=== PATIENT | female | born 1945 | race African-American/Black ===

== ENCOUNTER 2016-10-23 14:38 | Emergency (ER) | payer MEDICARE, MEDICAID ==
[~2016-10-23] VITALS: Ht 157.5 cm; Wt 86.0 kg
[~2016-10-23 14:38] MED LIST: ACET-2178 PO; ALBUTEROL INH; ASPI-1159 PO; ATOR40TA70 PO; BACL-141 PO; CEPH500C2 PO; COR25 PO; GLIP10TA10 PO; ISOS30TA6 PO; OMEP20CA10 PO; OXYB5TAB11 PO; PATAODR EACHEYE; PREMV VG; SODI650T PO; TRAM50TA73 PO
[2016-10-23] MEDS ORDERED: SODIUM CHLORIDE 0.9% 500 ML IV ONE (16:15)
[2016-10-23 16:32] LABS: BASOPHILS % 1.1 % (0.0-2.0); EOSINOPHILS % 4.9 % (0.0-5.0); HEMATOCRIT. 36.2 % (36.0-48.0); LYMPHOCYTES % 47.5 % (20.0-50.0); MEAN CORPUSCULAR HEMOGLOBIN 30.7 pg (28.0-32.0); MEAN CORPUSCULAR VOLUME 92.7 fL (81.0-99.0); MEAN PLATELET VOLUME 9.2 fl (7.4-10.4); MONOCYTES % 9.2 % (2.0-8.0); NEUTROPHILS % 37.3 % (40.0-76.0); PLATELET 193 x1000/uL (130-400)
[2016-10-23 16:47] LABS: INR 1.1; PROTHROMBIN TIME 11.4 sec (9.4-11.6)
[2016-10-23 16:49] LABS: CARBON DIOXIDE 28 mEq/L (21-32); CHLORIDE 109 mEq/L (98-107); TROPONIN I 0.04 ng/mL (0.00-0.04)
[2016-10-23 19:02] LABS: CLARITY URINE CLEAR (CLEAR); COLOR URINE YELLOW (YELLOW); GLUCOSE URINE NEGATIVE (NEGATIVE); KETONES URINE NEGATIVE (NEGATIVE); LEUKOCYTE ESTERASE URINE NEGATIVE (NEGATIVE); NITRITE URINE NEGATIVE (NEGATIVE); OCCULT BLOOD URINE NEGATIVE (NEGATIVE); PROTEIN URINE NEGATIVE (NEGATIVE); SPECIFIC GRAVITY URINE 1.013 (1.005-1.030); UROBILINOGEN URINE 0.2 E.U./dL (0.2-1.0)
[2016-10-23 21:04] VITALS: BP 148/83
== END 2016-10-23 21:13 | disposition home or self-care (01) ==
LOC: ER 14:38
DX: S40.262A Insect bite (nonvenomous) of left shoulder, initial encounter (principal); R53.83 Other fatigue; I10 Essential (primary) hypertension; E11.9 Type 2 diabetes mellitus without complications; Z79.82 Long term (current) use of aspirin; Z88.6 Allergy status to analgesic agent; Z88.5 Allergy status to narcotic agent; W57.XXXA Bitten or stung by nonvenomous insect and other nonvenomous arthropods, initial encounter; Y93.89 Activity, other specified; Y92.89 Other specified places as the place of occurrence of the external cause; Y99.8 Other external cause status
CPT/HCPCS: 36415; 71010; 80053; 81003; 83880; 84484; 85025; 85610; 93005; 96360; 96361; 99285; J7030; J7040

== ENCOUNTER 2016-12-14 11:13 | Emergency (ER) | payer MEDICARE, MEDICAID ==
[~2016-12-14] VITALS: Ht 157.5 cm; Wt 84.0 kg
[2016-12-14] MEDS ORDERED: ACETAMINOPHEN 325MG TABLET PO ONE (15:00)
[2016-12-14 17:21] VITALS: BP 135/67
== END 2016-12-14 17:29 | disposition home or self-care (01) ==
LOC: ER 12:32
DX: S92.321A Displaced fracture of second metatarsal bone, right foot, initial encounter for closed fracture (principal); E11.9 Type 2 diabetes mellitus without complications; I10 Essential (primary) hypertension; I20.9 Angina pectoris, unspecified; X58.XXXA Exposure to other specified factors, initial encounter; Y93.89 Activity, other specified; Y92.89 Other specified places as the place of occurrence of the external cause; Z88.6 Allergy status to analgesic agent; Z88.8 Allergy status to other drugs, medicaments and biological substances; Z87.891 Personal history of nicotine dependence; Z90.710 Acquired absence of both cervix and uterus
CPT/HCPCS: 73630; 99284

== ENCOUNTER 2017-07-13 12:07 | Emergency (ER) | payer MEDICARE, MEDICAID ==
[~2017-07-13] VITALS: Ht 157.5 cm; Wt 86.0 kg
[~2017-07-13 12:07] MED LIST changes: -TRAM50TA73 PO; +TRAM50TA94 PO
[2017-07-13 13:48] LABS: KETONES URINE NEGATIVE (NEGATIVE); LEUKOCYTE ESTERASE URINE 3+ (NEGATIVE); NITRITE URINE NEGATIVE (NEGATIVE); OCCULT BLOOD URINE 1+ (NEGATIVE); PH URINE 6.5 (4.5-8.0); PROTEIN URINE NEGATIVE (NEGATIVE); SPECIFIC GRAVITY URINE 1.013 (1.005-1.030); UROBILINOGEN URINE 0.2 E.U./dL (0.2-1.0)
[2017-07-13 13:50] LABS: CLARITY URINE CLOUDY (CLEAR); COLOR URINE YELLOW (YELLOW)
[2017-07-13 16:18] VITALS: BP 138/82
== END 2017-07-13 16:19 | disposition home or self-care (01) ==
LOC: ER 12:07
DX: N39.0 Urinary tract infection, site not specified (principal); R31.9 Hematuria, unspecified; I10 Essential (primary) hypertension; E11.9 Type 2 diabetes mellitus without complications; Z79.82 Long term (current) use of aspirin; Z79.84 Long term (current) use of oral hypoglycemic drugs; Z88.5 Allergy status to narcotic agent; Z90.710 Acquired absence of both cervix and uterus; Z90.89 Acquired absence of other organs
CPT/HCPCS: 81003; 87077; 87086; 87186; 99284

== ENCOUNTER 2018-03-02 17:50 | Inpatient (IN) | payer MEDICARE, MEDICAID ==
[~2018-03-02] VITALS: Ht 157.5 cm; Wt 88.9 kg
[2018-03-02] MEDS ORDERED: ONDANSETRON HCL 4MG/2ML INJ IV STA (19:34)
[2018-03-02] MEDS ORDERED: ACETAMINOPHEN 325MG TABLET PO STA (19:34)
[2018-03-02 19:49] LABS: BASOPHILS % 1.1 % (0.0-2.0); HEMATOCRIT. 38.6 % (36.0-48.0); HEMOGLOBIN. 12.6 g/dL (12.0-16.0); LYMPHOCYTES % 45.1 % (20.0-50.0); MEAN CORPUSCULAR HEMOGLOBIN 30.9 pg (28.0-32.0); MEAN CORPUSCULAR VOLUME 94.9 fL (81.0-99.0); MEAN PLATELET VOLUME 9.9 fl (7.4-10.4); NEUTROPHILS % 40.8 % (40.0-76.0); PLATELET 192 x1000/uL (130-400); RED BLOOD CELL COUNT 4.07 mill/uL (4.2-5.4)
[2018-03-02 19:54] LABS: CHLORIDE 108 mEq/L (98-107)
[2018-03-02 19:57] LABS: INR 1.1; PARTIAL THROMBOPLASTIN TIME 27.9 sec (23.4-31.0)
[2018-03-02 19:58] LABS: ETHANOL BLOOD < 10 mg/dL
[2018-03-02 20:57] LABS: CLARITY URINE CLEAR (CLEAR); COLOR URINE YELLOW (YELLOW); KETONES URINE NEGATIVE (NEGATIVE); LEUKOCYTE ESTERASE URINE NEGATIVE (NEGATIVE); NITRITE URINE NEGATIVE (NEGATIVE); OCCULT BLOOD URINE NEGATIVE (NEGATIVE); PH URINE 6.5 (4.5-8.0); PROTEIN URINE NEGATIVE (NEGATIVE); UROBILINOGEN URINE 0.2 E.U./dL (0.2-1.0)
[2018-03-02] MEDS ORDERED: ASPIRIN 81MG TABLET PO ONE (21:00)
[2018-03-02 21:07] LABS: *BARBITURATES SCREEN URINE NEGATIVE (NEGATIVE)
[2018-03-02 21:08] LABS: *AMPHETAMINES SCREEN URINE NEGATIVE (NEGATIVE); *BENZODIAZEPINES SCREEN URINE NEGATIVE (NEGATIVE); *COCAINE SCREEN URINE NEGATIVE (NEGATIVE); METHADONE URINE SCREEN NEGATIVE (NEGATIVE); OPIATES URINE SCREEN NEGATIVE (NEGATIVE)
[2018-03-02 21:09] LABS: CANNABINOID URINE SCREEN NEGATIVE (NEGATIVE); PHENCYCLIDINE URINE SCREEN NEGATIVE (NEGATIVE)
[2018-03-03] VITALS (10 sets, daily range): BP systolic 98–156; BP diastolic 44–86
[2018-03-03] MEDS ORDERED: NITR0.4T SL (02:18)
[2018-03-03] MEDS ORDERED: KETO15CR2 TP (02:18)
[2018-03-03] MEDS ORDERED: QUIN20TA30 MT (02:18)
[2018-03-03] MEDS ORDERED: RANI-633 PO (02:19)
[2018-03-03] MEDS ORDERED: CHOL20004 PO (02:19)
[2018-03-03] MEDS ORDERED: LIDO5CRE18 TP (02:19)
[2018-03-03] MEDS ORDERED: LOPE2CAP PO (02:19)
[2018-03-03] MEDS ORDERED: DULO30CA2 PO (02:19)
[2018-03-03] MEDS ORDERED: CYAN250010 PO (02:19)
[2018-03-03] MEDS ORDERED: IPRATROPIUM/ALBUTEROL 0.5-3(2.5)MG/3ML NEB HHN PRN (02:45)
[2018-03-03] MEDS ORDERED: TRAMADOL HCL 50 MG PO PRN (02:45)
[2018-03-03] MEDS ORDERED: LIDOCAINE 2 GM TP PRN (02:45)
[2018-03-03] MEDS ORDERED: LOPERAMIDE HCL 2MG CAPSULE PO PRN (02:45)
[2018-03-03] MEDS ORDERED: NITROGLYCERIN SL SCH (02:45)
[2018-03-03] MEDS ORDERED: DEXTROSE 50% WATER 50ML SYRINGE IV PRN (02:45)
[2018-03-03] MEDS ORDERED: ACETAMINOPHEN 500 MG PO PRN (02:45)
[2018-03-03] MEDS ORDERED: MEDICATION NOT ON FORMULARY EA (Baclofen 1 TAB) PO PRN (02:45)
[2018-03-03] MEDS: ACETAMINOPHEN 500MG TABLET PO PRN ×3 (03:12→18:45)
[2018-03-03] MEDS: CARVEDILOL 12.5MG TABLET PO SCH ×2 (03:13→21:17)
[2018-03-03] MEDS: PATANOL 0.1% EACHEYE SCH ×2 (03:14→18:46)
[2018-03-03] MEDS ORDERED: BACLOFEN 10MG TABLET PO PRN (03:15)
[2018-03-03] MEDS ORDERED: TRAMADOL 50MG TABLET PO PRN (03:30)
[2018-03-03] MEDS ORDERED: NITROGLYCERIN 0.4MG TABLET SL SL PRN (03:30)
[2018-03-03] MEDS ORDERED: LIDOCAINE HCL 4% CREAM 76GM TUBE TP PRN (04:30)
[2018-03-03] MEDS: BLOOD SUGAR DIAGNOSTIC STRIP TEST SCH ×4 (06:55→21:20)
[2018-03-03] MEDS ORDERED: CHOLECALCIFEROL (D3) 1000 UNIT TABLET PO SCH (09:00)
[2018-03-03] MEDS ORDERED: CYANOCOBALAMIN 1000MCG TABLET PO SCH (09:00)
[2018-03-03] MEDS ORDERED: MEDICATION NOT ON FORMULARY EA (Cyanocobalamin (Vitamin B-12) (Vitamin B12) 1,000 MCG) PO SCH (09:00)
[2018-03-03] MEDS ORDERED: CHOLECALCIFEROL 4000 UNIT PO SCH (09:00)
[2018-03-03] MEDS ORDERED: RANITIDINE HCL 50 MG PO SCH (09:00)
[2018-03-03] MEDS ORDERED: LISINOPRIL 20MG TABLET PO SCH (09:00)
[2018-03-03] MEDS ORDERED: ASPIRIN 81MG TABLET PO SCH (09:00)
[2018-03-03] MEDS ORDERED: DULOXETINE HCL 30MG DR CAPSULE PO SCH (09:00)
[2018-03-03] MEDS ORDERED: OXYBUTYNIN CHLORIDE 5 MG PO SCH (09:00)
[2018-03-03] MEDS ORDERED: MEDICATION NOT ON FORMULARY EA (Aspirin (Aspirin Low Dose) 1 TAB) PO SCH (09:00)
[2018-03-03] MEDS: OXYBUTYNIN CHLORIDE 5MG TABLET PO SCH ×2 (10:35→18:37)
[2018-03-03 11:12] LABS: T4 FREE 0.88 ng/dL (0.76-1.46)
[2018-03-03] MEDS ORDERED: MECLIZINE 25MG TABLET PO PRN (13:30)
[2018-03-03 16:12] LABS: HEMATOCRIT 36.4 % (36.0-48.0); HEMOGLOBIN 12.1 g/dL (12.0-16.0); MEAN CORPUSCULAR HEMOGLOBIN 31.5 pg (28.0-32.0); PLATELET 190 x1000/uL (130-400); RED BLOOD CELL COUNT 3.83 mill/uL (4.2-5.4); RED CELL DISTRIBUTION WIDTH 14.9 % (11.6-14.6)
[2018-03-03 16:18] LABS: CHLORIDE 107 mEq/L (98-107)
[2018-03-03] MEDS ORDERED: FAMOTIDINE 20MG TABLET PO SCH (21:00)
[2018-03-03] MEDS ORDERED: ATORVASTATIN CALCIUM 10MG TABLET PO SCH (21:00)
== END 2018-03-03 22:10 | disposition home or self-care (01) | DRG 917 ==
LOC: ER 20:57 → EDBEDREQ 20:59 → EDBEDREQTM 20:59 → ENRESERV 23:21 → 6WST 03-03 01:32
PROVIDERS: ADMIT Internal Medicine; ATTEND Internal Medicine
DX: T50.991A Poisoning by other drugs, medicaments and biological substances, accidental (unintentional), initial encounter (principal); G92 Toxic encephalopathy; G45.9 Transient cerebral ischemic attack, unspecified; G90.8 Other disorders of autonomic nervous system; E11.9 Type 2 diabetes mellitus without complications; E78.00 Pure hypercholesterolemia, unspecified; E78.5 Hyperlipidemia, unspecified; J06.9 Acute upper respiratory infection, unspecified; E86.0 Dehydration; G47.00 Insomnia, unspecified; I10 Essential (primary) hypertension; J44.9 Chronic obstructive pulmonary disease, unspecified; N81.4 Uterovaginal prolapse, unspecified; Z90.710 Acquired absence of both cervix and uterus; Z88.5 Allergy status to narcotic agent; Z88.6 Allergy status to analgesic agent; Z88.8 Allergy status to other drugs, medicaments and biological substances; Z79.84 Long term (current) use of oral hypoglycemic drugs; Z79.82 Long term (current) use of aspirin; Z79.899 Other long term (current) drug therapy; Y92.89 Other specified places as the place of occurrence of the external cause
CPT/HCPCS: 36415; 70551; 71045; 80048; 80061; 80305; 82962; 83880; 84439; 84443; 84484; 85027; 87804; 93005; 93306; 96374; 97162; 99285; G0482; J2405

== ENCOUNTER 2022-05-28 23:57 | Emergency (ER) | payer MEDICARE, MEDICAID ==
[~2022-05-28] VITALS: Ht 162.6 cm; Wt 87.0 kg
[~2022-05-28 23:57] MED LIST changes: -ACET-2178 PO; -ASPI-1159 PO; +ASPI-1497 PO; +CHOL20004 PO; +CYAN250010 PO; +DULO30CA2 PO; -ISOS30TA6 PO; +ISOS30TA91 PO; +KETO15CR2 TP; +LIDO5CRE18 TP; +LOPE2CAP PO; +NITR0.4T SL; -OMEP20CA10 PO; +OMEP20CA14 PO; -OXYB5TAB11 PO; +OXYB5TAB16 PO; +QUIN20TA30 MT; +RANI-645 PO; +TOPUD PO
[2022-05-29 01:05] LABS: BASOPHILS % 0.2 % (0.0-2.0); EOSINOPHILS % 0.1 % (0.0-5.0); HEMATOCRIT. 35.5 % (36.0-48.0); HEMOGLOBIN. 11.9 g/dL (12.0-16.0); LYMPHOCYTES % 16.3 % (20.0-50.0); MEAN CORPUSCULAR HEMOGLOBIN 31.8 pg (28.0-32.0); MEAN CORPUSCULAR VOLUME 94.9 fL (81.0-99.0); MEAN PLATELET VOLUME 9.4 fl (7.4-10.4); MONOCYTES % 7.5 % (2.0-8.0); NEUTROPHILS % 75.9 % (40.0-76.0); PLATELET 206 x1000/uL (130-400); RED BLOOD CELL COUNT 3.74 mill/uL (4.2-5.4); RED CELL DISTRIBUTION WIDTH 14.6 % (11.6-14.6)
[2022-05-29 01:09] LABS: CHLORIDE 105 mEq/L (98-107)
[2022-05-29] MEDS ORDERED: ACETAMINOPHEN 325MG TABLET PO ONE (04:30)
[2022-05-29 05:00] VITALS: BP 130/71
== END 2022-05-29 08:13 | disposition home or self-care (01) ==
LOC: ER 23:57
DX: R51.9 Headache, unspecified (principal); R00.2 Palpitations; R07.89 Other chest pain
CPT/HCPCS: 36415; 71045; 80053; 84484; 85025; 99284

== ENCOUNTER 2023-12-08 12:34 | Emergency (ER) | payer MEDICARE ==
[~2023-12-08] VITALS: Ht 157.5 cm; Wt 88.0 kg
[~2023-12-08 12:34] MED LIST changes: -OXYB5TAB16 PO; +OXYB5TAB21 PO; -QUIN20TA30 MT; +QUIN20TA39 MT
[2023-12-08 12:37] VITALS: BP 120/72; PULSE 89; TEMP 98.5; O2SAT 98
[2023-12-08 14:58] LABS: CHLORIDE 110 mEq/L (98-107); POTASSIUM 4.1 mEq/L (3.5-5.1); SODIUM 141 mEq/L (136-145)
[2023-12-08 14:59] LABS: CALCIUM 9.7 mg/dL (8.7-10.4); CARBON DIOXIDE 25 mEq/L (21-32)
[2023-12-08 15:03] LABS: DIFFERENTIAL COMMENT 0; EOSINOPHILS % 5.7 % (0.0-5.0); HEMATOCRIT. 37.2 % (36.0-48.0); HEMOGLOBIN. 11.8 g/dL (12.0-16.0); LYMPHOCYTES % 35.9 % (20.0-50.0); MEAN CORPUSCULAR HEMOGLOBIN 31.4 pg (28.0-32.0); MEAN CORPUSCULAR HGB CONC 31.8 g/dL (31.0-37.0); MEAN CORPUSCULAR VOLUME 98.5 fL (81.0-99.0); MEAN PLATELET VOLUME 9.5 fl (7.4-10.4); MONOCYTES % 9.6 % (2.0-8.0); NEUTROPHILS % 47.8 % (40.0-76.0); PLATELET 211 x1000/uL (130-400); RED BLOOD CELL COUNT 3.77 mill/uL (4.2-5.4); RED CELL DISTRIBUTION WIDTH 15.1 % (11.6-14.6); WHITE BLOOD COUNT 4.1 x1000/uL (4.5-11.0)
[2023-12-08 15:04] LABS: CREATININE 0.7 mg/dL (0.6-1.0); GLUCOSE 117 mg/dL (70-105); UREA NITROGEN BLOOD 11 mg/dL (9-23)
== END 2023-12-08 16:30 | disposition home or self-care (01) ==
LOC: ER 12:34
DX: M79.605 Pain in left leg (principal); I10 Essential (primary) hypertension; E78.00 Pure hypercholesterolemia, unspecified; J44.9 Chronic obstructive pulmonary disease, unspecified; Z79.82 Long term (current) use of aspirin; Z79.899 Other long term (current) drug therapy; Z88.5 Allergy status to narcotic agent; Z90.710 Acquired absence of both cervix and uterus
CPT/HCPCS: 36415; 73630; 80048; 85025; 93971; 99284